=== PATIENT | male | born 1980 | race Caucasian/White ===

== ENCOUNTER 2016-08-19 17:33 | Emergency (ER) | payer OTHER ==
[~2016-08-19] VITALS: Ht 177.8 cm; Wt 83.9 kg
[~2016-08-19 17:33] MED LIST: ALLEGRA-D 24 H1 EACH PO; FLONASE 0.05%50 MCG NASAL; KLOR-CON 1010 MEQ PO; NOHOMEMEDICATIONS; PENICILLIN VK500 M1 PO; ZOVIRAX400 MG PO
[2016-08-19 18:03] LABS: URINE BILIRUBIN NEGATIVE (Negative); URINE BLOOD 3+ (Negative); URINE COLOR YELLOW; URINE GLUCOSE-RANDOM* NEGATIVE (Negative); URINE KETONES NEGATIVE (Negative); URINE NITRITE NEGATIVE (Negative); URINE PROTEIN (DIPSTICK) NEGATIVE (Negative); URINE SPECIFIC GRAVITY 1.015 (1.003-1.035)
[2016-08-19 18:08] LABS: BACTERIA 1-9 Few /HPF (None Seen); SQUAMOUS None Seen /LPF (0-3); URINE RBC >20 Many /HPF (0-2); URINE WBC 0-5 Rare /HPF (0-5)
[2016-08-19 18:09] LABS: CASTS None Seen /LPF (None Seen); CRYSTALS None Seen /LPF (None Seen)
[2016-08-19] MEDS ORDERED: NAPROSYN500 MG PO (19:36)
== END 2016-08-19 19:56 | disposition home or self-care (01) ==
LOC: ER 17:33
PROVIDERS: Emergency Medicine
DX: N50.819 Testicular pain, unspecified (principal); R31.29 Other microscopic hematuria; G51.0 Bell's palsy; J45.909 Unspecified asthma, uncomplicated; Z72.52 High risk homosexual behavior